=== PATIENT | female | born 1970 | race Caucasian/White ===

== ENCOUNTER 2016-08-11 06:57 | Day surgery (SDC) | payer BC ==
[~2016-08-11] VITALS: Ht 165.1 cm; Wt 71.0 kg
[~2016-08-11 06:57] MED LIST: GABA-826 PO; IBUP800T PO; NONE PER PT
[2016-08-11 07:37] VITALS: BP 132/86
[2016-08-11] MEDS ORDERED: LACTATED RINGERS 1,000 ML IV SCH (07:37)
[2016-08-11] MEDS ORDERED: FENTANYL PF 250 MCG/5ML ONE (08:10)
[2016-08-11] MEDS ORDERED: MIDAZOLAM 1 MG/ML, 2ML ONE (08:11)
[2016-08-11 08:16] LABS: HCG UR OBC PASS
[2016-08-11] MEDS ORDERED: BUPIVACAINE 0.25% ONE (08:43)
[2016-08-11] MEDS ORDERED: METOCLOPRAMIDE 5 MG/ML, 2ML ONE (08:55)
[2016-08-11] MEDS ORDERED: PROPOFOL 10 MG/ML, 20ML ONE (08:55)
[2016-08-11] MEDS ORDERED: CEFAZOLIN 1,000 MG ONE (08:55)
[2016-08-11] MEDS ORDERED: KETOROLAC 30 MG/1 ML ONE (08:55)
[2016-08-11] MEDS ORDERED: DEXAMETHASONE 4 MG/ML, 1ML ONE (08:55)
[2016-08-11] MEDS ORDERED: ONDANSETRON 2MG/ML, 2ML ONE (08:55)
[2016-08-11] MEDS ORDERED: MIDAZOLAM 1 MG/ML, 2ML IV PRN (09:30)
[2016-08-11] MEDS ORDERED: PROMETHAZINE 25 MG/ML, 1ML IV PRN (09:30)
[2016-08-11] MEDS ORDERED: ALBUTEROL/IPRATROPIUM 2.5MG/0.5MG, 3 ML NPPB PRN (09:30)
[2016-08-11] MEDS ORDERED: MEPERIDINE/PF 25MG/0.5ML IVPush PRN (09:30)
[2016-08-11] MEDS ORDERED: LABETALOL 5MG/ML, 20ML IV PRN (09:30)
[2016-08-11] MEDS ORDERED: ACETAMINOPHEN 325 MG TABLET PO PRN (09:30)
[2016-08-11] MEDS ORDERED: hydrALAzine 20 MG/ML, 1ML IV PRN (09:30)
[2016-08-11] MEDS ORDERED: ONDANSETRON 2MG/ML, 2ML IVPush PRN (09:30)
[2016-08-11] MEDS ORDERED: OXYcodone 5 MG/5 ML ORAL.SOL UDC PO PRN (09:30)
[2016-08-11] MEDS ORDERED: HYDROmorphone 1 MG/ML, 1ML IV PRN (09:30)
[2016-08-11] MEDS ORDERED: FENTANYL PF 100 MCG/2ML ONE (09:51)
[2016-08-11] MEDS ORDERED: ACETAMINOPHEN 325 MG TABLET ONE (09:51)
[2016-08-11] MEDS ORDERED: OXYcodone 5 MG/5 ML ORAL.SOL UDC ONE (09:51)
[2016-08-11] MEDS ORDERED: ACETAMINOPHEN 650 MG/20.3 ML UDC ONE (09:52)
[2016-08-11] MEDS: FENTANYL PF 100 MCG/2ML IV PRN ×2 (09:54→10:20)
== END 2016-08-11 12:05 | disposition home or self-care (01) ==
LOC: OUT 06:57
PROVIDERS: ATTEND Surgery
DX: K42.0 Umbilical hernia with obstruction, without gangrene (principal); Z98.890 Other specified postprocedural states; Z72.89 Other problems related to lifestyle; Z87.891 Personal history of nicotine dependence; Z83.3 Family history of diabetes mellitus; Z82.3 Family history of stroke; Z82.49 Family history of ischemic heart disease and other diseases of the circulatory system
CPT/HCPCS: 49587; 81025; C1781; J0690; J1100; J1885; J2250; J2405; J2704; J2765; J3010; J3490; J7120

== ENCOUNTER 2018-07-28 19:02 | Emergency (ER) | payer BC, OTHER ==
[~2018-07-28] VITALS: Ht 165.1 cm; Wt 75.2 kg
[~2018-07-28 19:02] MED LIST changes: +IBUP-1223 PO; -IBUP800T PO
[2018-07-28 19:03] VITALS: BP 179/87
[2018-07-28] MEDS ORDERED: ASPIRIN 81 MG TABLET CHEW PO ONE (19:30)
[2018-07-28 19:46] LABS: BASOPHILS # (AUTO) 0.03 x10^3/uL (0-0.1); BASOPHILS % (AUTO) 0 % (0-1); EOSINOPHILS # (AUTO) 0.07 x10^3/uL (0-0.4); EOSINOPHILS % (AUTO) 1 % (1-7); LYMPHOCYTES # (AUTO) 3.03 x10^3/uL (1-3.4); LYMPHOCYTES % (AUTO) 36 % (22-44); MD NO; MEAN CORPUSCULAR HEMOGLOBIN 30.4 pg (27.0-34.8); MEAN CORPUSCULAR HGB CONC 34.2 g/dL (32.4-35.8); MEAN CORPUSCULAR VOLUME 88.8 fL (80-100); MEAN PLATELET VOLUME 6.8 fL (7.4-10.4); MONOCYTES # (AUTO) 0.52 x10^3/uL (0.2-0.8); MONOCYTES % (AUTO) 6 % (2-9); NEUTROPHILS # (AUTO) 4.89 x10^3/uL (1.8-6.8); NEUTROPHILS % (AUTO) 57 % (42-75); PLATELET COUNT 229 x10^3/uL (130-400); RED BLOOD COUNT 4.92 x10^6/uL (3.82-5.3); RED CELL DISTRIBUTION WIDTH 12.9 % (9.6-15.2)
[2018-07-28 19:48] LABS: ALBUMIN 4.2 g/dL (3.4-5.0); ANION GAP 6 mmol/L (5-15); CALCIUM 8.9 mg/dL (8.5-10.1); CHLORIDE 107 mmol/L (98-107)
[2018-07-28 19:55] LABS: ALANINE AMINOTRANSFERASE 25 U/L (12-78); ALKALINE PHOSPHATASE 39 U/L (45-117); BILIRUBIN,TOTAL 0.4 mg/dL (0.2-1.0); CREATININE 0.93 mg/dL (0.55-1.02); TOTAL PROTEIN 7.1 g/dL (6.4-8.2); TROPONIN I < 0.015 ng/mL (0.000-0.045)
[2018-07-28] MEDS ORDERED: ASPIRIN 81 MG TABLET CHEW ONE (23:01)
--- NOTE | 2018-07-28 23:06 | NUR ---
pt in gown in [facility]. pt states that she is being d/c by physician at this time, and pt refusing medications.
--- NOTE | 2018-07-28 23:32 | NUR ---
pt d/c with d/c summary and otc scripts. pt denies any other needs pertaining to this visit. pt has call light within reach. pt ambulates to registration desk with steady gait for d/c home.
== END 2018-07-28 23:46 | disposition home or self-care (01) ==
LOC: ED 22:30
DX: R07.89 Other chest pain (principal); F17.200 Nicotine dependence, unspecified, uncomplicated
CPT/HCPCS: 36415; 71045; 80053; 84439; 84443; 84484; 85025; 93005; 99284